=== PATIENT | female | born 1975 | race Caucasian/White ===

== ENCOUNTER 2016-05-07 22:19 | Inpatient (IN) | payer MEDICARE ==
[~2016-05-07] VITALS: Ht 175.3 cm; Wt 80.7 kg
[2016-05-07] MEDS ORDERED: DUONEB INH ONE ×2 (23:25)
[2016-05-08] VITALS (9 sets, daily range): BP systolic 98–120; RESP 16–32; TEMP 97.9–99; Ht 175.3 cm; Wt 80.7 kg
[2016-05-08] MEDS ORDERED: SODIUM CHLORIDE 0.9% 0 ML ONE (01:22)
[2016-05-08] MEDS ORDERED: PNEUMO VAC 25 MCG/0.5 ML VL IM.VACC ONE (04:40)
[2016-05-08] MEDS ORDERED: Flu Vaccine Quadrivalent 60 MCG/0.5 ML IM.VACC ONE (04:45)
[2016-05-08] MEDS ORDERED: SALINE FLUSH 10 ML FLUSH PRN (05:35)
[2016-05-08] MEDS ORDERED: ONDANSETRON 4 MG VIAL IV PUSH ONE (07:33)
[2016-05-08] MEDS ORDERED: PRECEDEX 200 MCG/2 ML VL IV ONE (07:33)
[2016-05-08] MEDS ORDERED: LIDOCAINE 2% JELLY 30 ML TOPICAL ONE (07:33)
[2016-05-08] MEDS ORDERED: PROPOFOL 50ML VIAL IV ONE (07:33)
[2016-05-08] MEDS ORDERED: LIDOCAINE 2% SYR 5 ML IV ONE (07:33)
[2016-05-08] MEDS: DUONEB INH SCH ×4 (11:03→22:31)
[2016-05-08] MEDS ORDERED: OPTIRAY 350 100 ML VIAL HMH IV ONE (12:13)
[2016-05-08] MEDS: SALINE FLUSH 10 ML FLUSH SCH ×2 (12:56→20:07)
[2016-05-08] MEDS: LEVOFLOXACIN 500 MG/100 ML 100 ML IV SCH (12:57)
[2016-05-08] MEDS: METHYLPRED SOD SUCC 125 MG/2 ML VIAL IV SCH ×3 (12:57→23:49)
[2016-05-08] MEDS: SODIUM CHLORIDE 0.9% FLUSH BAG 500 ML IV SCH (12:57)
[2016-05-08] MEDS: VENLAFAXINE XR 150 MG CAP PO SCH (14:42)
[2016-05-08] MEDS ORDERED: ACETAMINOPHEN 325 MG TAB ONE (14:45)
[2016-05-08] MEDS ORDERED: SODIUM CHLORIDE 0.9% 1,000 ML ONE (14:45)
[2016-05-08] MEDS: NICOTINE 21 MG/24 HR TRANSDERM SCH (16:33)
[2016-05-08] MEDS: NEB-BUDESONIDE 0.5 MG INH SCH (18:25)
[2016-05-08] MEDS: NEB-BROVANA 15 MCG/2 ML INH SCH (18:25)
[2016-05-08] MEDS: oxyCODONE/APAP 10/325 TABLET PO PRN (20:07)
[2016-05-09] VITALS (12 sets, daily range): BP systolic 94–136; RESP 16–37; TEMP 97.4–98.1
[2016-05-09] MEDS: DUONEB INH SCH ×6 (02:45→23:18)
[2016-05-09] MEDS: SODIUM CHLORIDE 0.9% FLUSH BAG 500 ML IV SCH (04:32)
[2016-05-09] MEDS: NEB-BUDESONIDE 0.5 MG INH SCH ×2 (06:48→20:10)
[2016-05-09] MEDS: NEB-BROVANA 15 MCG/2 ML INH SCH ×2 (06:48→20:10)
[2016-05-09] MEDS ORDERED: MISSING DOSE XX ONE (09:05)
[2016-05-09] MEDS: SALINE FLUSH 10 ML FLUSH SCH ×2 (09:09→21:55)
[2016-05-09] MEDS: METHYLPRED SOD SUCC 125 MG/2 ML VIAL IV SCH ×2 (09:10→17:21)
[2016-05-09] MEDS: LEVOFLOXACIN 500 MG/100 ML 100 ML IV SCH (09:10)
[2016-05-09] MEDS: oxyCODONE/APAP 10/325 TABLET PO PRN ×2 (09:11→17:27)
[2016-05-09] MEDS: NICOTINE 21 MG/24 HR TRANSDERM SCH (09:11)
[2016-05-09] MEDS: VENLAFAXINE XR 150 MG CAP PO SCH (09:26)
[2016-05-09] MEDS ORDERED: LIDOCAINE 1% BUFFERED 1 ML SYR INTRADERM PRN (12:45)
[2016-05-09] MEDS ORDERED: LACT RINGERS 1,000 ML IV SCH (12:45)
[2016-05-09] MEDS ORDERED: NEB-XOPENEX 1.25 MG/3 ML INH ONE (13:50)
[2016-05-09] MEDS ORDERED: NEB-ALBUTEROL 2.5 MG/3 ML INH ONE (14:01)
[2016-05-09] MEDS: METHYLPRED SOD SUCC 40 MG VIAL IV SCH (23:38)
[2016-05-10] MEDS: oxyCODONE/APAP 10/325 TABLET PO PRN ×2 (02:13→10:35)
[2016-05-10] MEDS: DUONEB INH SCH ×4 (02:50→14:38)
[2016-05-10 03:31] VITALS: BP_SYST 113; RESP 18; TEMP 97.8
[2016-05-10] MEDS: SODIUM CHLORIDE 0.9% FLUSH BAG 500 ML IV SCH (05:54)
[2016-05-10 07:54] VITALS: BP_SYST 121; RESP 18; TEMP 97.5
[2016-05-10] MEDS: NEB-BROVANA 15 MCG/2 ML INH SCH (08:03)
[2016-05-10] MEDS: NEB-BUDESONIDE 0.5 MG INH SCH (08:03)
[2016-05-10] MEDS: VENLAFAXINE XR 150 MG CAP PO SCH (09:12)
[2016-05-10] MEDS: SALINE FLUSH 10 ML FLUSH SCH (09:12)
[2016-05-10] MEDS: LEVOFLOXACIN 500 MG/100 ML 100 ML IV SCH (09:12)
[2016-05-10] MEDS: NICOTINE 21 MG/24 HR TRANSDERM SCH (09:13)
[2016-05-10] MEDS: METHYLPRED SOD SUCC 40 MG VIAL IV SCH (09:14)
[2016-05-10 11:31] VITALS: BP_SYST 113; RESP 16; TEMP 98
[2016-05-10 14:50] VITALS: BP_SYST 113; RESP 16; TEMP 98
== END 2016-05-10 15:08 | disposition home or self-care (01) | DRG 189 ==
LOC: ENRESERVDT → ENRESERVTM → ER 22:19 → ENPENDDIS 05-08 01:00 → EMR 05-08 01:00 → 4NT 05-08 03:44
PROVIDERS: ADMIT Internal Medicine; ATTEND Internal Medicine
PROC: 0BB48ZX Excision of Right Upper Lobe Bronchus, Via Natural or Artificial Opening Endoscopic, Diagnostic (ICD-10-PCS; 2016-05-09)
PROC: 0BB88ZX Excision of Left Upper Lobe Bronchus, Via Natural or Artificial Opening Endoscopic, Diagnostic (ICD-10-PCS; 2016-05-09)
PROC: 0BB18ZX Excision of Trachea, Via Natural or Artificial Opening Endoscopic, Diagnostic (ICD-10-PCS; 2016-05-09)
PROC: 0BB58ZX Excision of Right Middle Lobe Bronchus, Via Natural or Artificial Opening Endoscopic, Diagnostic (ICD-10-PCS; 2016-05-09)
PROC: 0BB38ZX Excision of Right Main Bronchus, Via Natural or Artificial Opening Endoscopic, Diagnostic (ICD-10-PCS; 2016-05-09)
PROC: 0BB78ZX Excision of Left Main Bronchus, Via Natural or Artificial Opening Endoscopic, Diagnostic (ICD-10-PCS; 2016-05-09)
PROC: 0BB68ZX Excision of Right Lower Lobe Bronchus, Via Natural or Artificial Opening Endoscopic, Diagnostic (ICD-10-PCS; 2016-05-09)
PROC: 0BBB8ZX Excision of Left Lower Lobe Bronchus, Via Natural or Artificial Opening Endoscopic, Diagnostic (ICD-10-PCS; 2016-05-09)
PROC: 0BB98ZX Excision of Lingula Bronchus, Via Natural or Artificial Opening Endoscopic, Diagnostic (ICD-10-PCS; 2016-05-09)
PROC: 0B958ZX Drainage of Right Middle Lobe Bronchus, Via Natural or Artificial Opening Endoscopic, Diagnostic (ICD-10-PCS; 2016-05-09)
PROC: 0BC98ZZ Extirpation of Matter from Lingula Bronchus, Via Natural or Artificial Opening Endoscopic (ICD-10-PCS; 2016-05-09)
PROC: 0BC48ZZ Extirpation of Matter from Right Upper Lobe Bronchus, Via Natural or Artificial Opening Endoscopic (ICD-10-PCS; 2016-05-09)
PROC: 0BC88ZZ Extirpation of Matter from Left Upper Lobe Bronchus, Via Natural or Artificial Opening Endoscopic (ICD-10-PCS; 2016-05-09)
PROC: 0BC18ZZ Extirpation of Matter from Trachea, Via Natural or Artificial Opening Endoscopic (ICD-10-PCS; 2016-05-09)
PROC: 0BC58ZZ Extirpation of Matter from Right Middle Lobe Bronchus, Via Natural or Artificial Opening Endoscopic (ICD-10-PCS; 2016-05-09)
PROC: 0BC38ZZ Extirpation of Matter from Right Main Bronchus, Via Natural or Artificial Opening Endoscopic (ICD-10-PCS; 2016-05-09)
PROC: 0BC78ZZ Extirpation of Matter from Left Main Bronchus, Via Natural or Artificial Opening Endoscopic (ICD-10-PCS; 2016-05-09)
PROC: 0BC68ZZ Extirpation of Matter from Right Lower Lobe Bronchus, Via Natural or Artificial Opening Endoscopic (ICD-10-PCS; 2016-05-09)
PROC: 0BCB8ZZ Extirpation of Matter from Left Lower Lobe Bronchus, Via Natural or Artificial Opening Endoscopic (ICD-10-PCS; 2016-05-09)
PROC: 0BB28ZX Excision of Carina, Via Natural or Artificial Opening Endoscopic, Diagnostic (ICD-10-PCS; principal; 2016-05-09 12:00)
DX: J96.01 Acute respiratory failure with hypoxia (principal); J44.1 Chronic obstructive pulmonary disease with (acute) exacerbation; R59.0 Localized enlarged lymph nodes; D72.829 Elevated white blood cell count, unspecified; Z85.820 Personal history of malignant melanoma of skin; Z72.0 Tobacco use; J45.909 Unspecified asthma, uncomplicated
CPT/HCPCS: 36415; 36600; 71010; 71260; 80053; 82553; 82785; 82803; 83880; 84484; 85025; 86003; 86606; 87071; 87102; 87116; 87205; 87206; 87305; 87449; 87496; 87529; 87798; 87804; 88104; 88108; 88305; 89051; 93005; 94640; 94660; 94799; 99223; 99232; 99233